=== PATIENT | male | born 1945 | race Caucasian/White ===

== ENCOUNTER → 2018-01-01 14:13 | Outpatient (CLI) | payer MEDICARE, SELFPAY ==
[2018-01-01 15:31] LABS: Add Manual Diff / Slide Review NO; Basophils Percent Auto 0.6 % (0-2); Eosinophils Percent Auto 3.3 % (2-4); Hematocrit 48.2 % (41-53); Hemoglobin 15.9 g/dL (13.5-17.5); Lymphocytes Percent Auto 24.6 % (25-40); Mean Corpuscular Hemoglobin 31.6 PG (26-34); Mean Corpuscular Volume 95.7 fL (80-100); Monocytes Percent Auto 8.2 % (3-14); Neutrophils Absolute Auto 6000 /uL (3000-5900); Neutrophils Percent Auto 63.3 % (50-75); Platelet Count 194 X10^3/uL (150-400); Red Blood Cell Count 5.03 X10^6/uL (4.5-5.9); Red Cell Distribution Width 14.2 % (11.6-14.8); White Blood Cell Count 9.5 X10^3/uL (4.5-11.0)
[2018-01-01 15:33] LABS: Hemoglobin A1C% w Est Avg Glu 6.4 % (4.0-6.0)
[2018-01-01 15:40] LABS: Alanine Aminotransferase 42 IU/L (21-72); Albumin 4.9 g/dL (3.5-5.0); Albumin Globulin Ratio 1.7 (1.0-2.8); Alkaline Phosphatase 75 U/L (38-126); Aspartate Aminotransferase 35 IU/L (17-59); BUN Creatinine Ratio 27.5 (6-22); Bilirubin Total 0.3 mg/dL (0.2-1.3); Blood Urea Nitrogen 22 mg/dL (9-20); Calcium 9.2 mg/dL (8.4-10.2); Carbon Dioxide 25 mmol/L (22-32); Chloride 105 mmol/L (98-107); Cholesterol 132 mg/dL (140-199); Estimated Glomerular Filt Rate > 60.0 mL/min (>60); Globulin 2.9 g/dL (1.7-4.1); Glucose 99 mg/dL (80-110); HDL Cholesterol 41 mg/dL (40-60); HEMOLYSIS 23 (0-50); LDL Cholesterol Calculated 58 mg/dL (<100); Potassium 4.2 mmol/L (3.4-5.1); Sodium 146 mmol/L (137-145); Total Protein 7.8 g/dL (6.3-8.2); Triglycerides 166 mg/dL (35-150)
== END ==
PROVIDERS: Visit Provider Physician Assistant
DX: R60.9 Edema, unspecified (principal); I10 Essential (primary) hypertension; R73.03 Prediabetes; E78.5 Hyperlipidemia, unspecified
CPT/HCPCS: 36415; 80053; 80061; 83036; 85025

== ENCOUNTER → 2018-02-14 14:00 | Outpatient (CLI) | payer MEDICARE, SELFPAY ==
--- NOTE | 2018-02-14 | DI.ECHO.S_ITS ---
[facility] +---------+ : : [address] : : : : [id number] : : : : Phone: [phone] Echocardiogram Report + + :Name: RASHI FERNÁNDEZ Study Date: 02/14/2018 Height: 72 in : :[facility] Exam Location: [facility] Weight: 266 lb : : Gender: Male BSA: 2.4 m2 : :: 1945 Age: 72 yrs BP: 130/90 mmHg: :Reason For Study: Congestive Heart Failure : :Ordering Physician: Dr. Isaac : :Steffen Performed By: Jenelle Page : :Referring: LELAND HAMMOND : + + Interpretation Summary The left ventricle is normal in size. The ejection fraction is estimated to be 65-70%. The right ventricle is mildly dilated. The right ventricular systolic function is normal. No significant valvular pathology. The ascending aorta is mildly enlarged. Procedure: A two-dimensional transthoracic echocardiogram with color flow and Doppler was performed. The study quality was technically adequate. There is no prior echocardiogram noted for this patient. The patient was in normal sinus rhythm during the exam. Left Ventricle: The left ventricle is normal in size. Proximal septal thickening is noted. There is no thrombus. The ejection fraction is estimated to be 65-70%. There are no focal wall motion abnormalities. Diastolic parameters suggest a relaxation abnormality of the left ventricle, consistent with probable normal filling pressures. Right Ventricle: The right ventricle is mildly dilated. The right ventricular systolic function is normal. Atria: The left atrium is mildly dilated. Right atrial size is normal. A prominent eustachian valve is noted. There is no Doppler evidence for an interatrial shunt. Mitral Valve: There is mild mitral annular calcification. There is trace mitral regurgitation. Aortic Valve: The aortic valve is trileaflet. The aortic valve opens well. There is discrete nodular thickening of the left coronary cusp. There is no aortic valve stenosis. No aortic regurgitation is present. Tricuspid Valve: The tricuspid valve is normal in structure and function. Pulmonary artery pressures cannot be estimated because of the lack of a measurable TR jet velocity. There is trace tricuspid regurgitation. Pulmonic Valve: The pulmonic valve is not well visualized. There is trace pulmonic regurgitation. Great Vessels: The aortic root is normal size. The ascending aorta is mildly enlarged. The pulmonary artery is not well visualized, but is probably normal size. The IVC is of normal diameter and collapses greater than 50% with a sniff. This suggests a low right atrial pressure of 3 mm Hg. Pericardium/ Pleura There is no pericardial effusion. There is no pleural effusion. MMode/2D Measurements & Calculations LVIDd: 4.9 cm Ao root diam: 3.4 cm LVIDs: 2.8 cm asc Aorta Diam: 3.5 cm FS: 43.4 % EPSS: 0.23 cm IVSd: 1.1 cm LVPWd: 0.82 cm LV chisholm. diameter/BSA (cm/m^2): 2.0 LV sys. diameter/BSA (cm/m^2): 1.2 LA A2 area: 30.5 cm2 RA long axis: 6.3 cm LA A4 area: 23.5 cm2 RA area: 21.9 cm2 LA length (vol): 6.5 cm RA vol: 64.6 ml LA vol: 93.8 ml RA : 26.9 ml/m2 LA vol index: 39.0 ml/m2 IVC diam: 2.0 cm Doppler Measurements & Calculations Ao V2 max: 130.2 cm/sec LVOT Max Mayito: 119.1 cm/sec Ao V2 mean: 88.6 cm/sec LV V1 max P.7 mmHg Ao max P.8 mmHg LV V1 VTI: 25.0 cm Ao mean P.4 mmHg sev ratio: 0.86 Ao V2 VTI: 29.0 cm MV E max mayito: 76.5 cm/sec TR max mayito: 200.4 cm/sec MV A max mayito: 96.2 cm/sec TR max P.1 mmHg MV E/A: 0.80 PA V2 max: 119.2 cm/sec Med Peak E' Mayito: 6.8 cm/sec PA V2 mean: 85.1 cm/sec E/E' med: 11.2 PA mean P.1 mmHg Lat Peak E' Mayito: 8.6 cm/sec PA Accel Time: 0.14 sec E/E' lat: 8.9 E/e' average: 10.1 MV dec time: 0.16 sec MV P1/2t: 45.1 msec MV P1/2t max mayito: 77.2 cm/sec MVA(P1/2t): 4.9 cm2 Reading Physician:PM
== END ==
PROVIDERS: Visit Provider Internal Medicine
DX: I50.20 Unspecified systolic (congestive) heart failure (principal); I77.810 Thoracic aortic ectasia
CPT/HCPCS: 93306

== ENCOUNTER 2018-05-03 14:10 | Day surgery (SDC) | payer MEDICARE, SELFPAY ==
--- NOTE | 2018-05-03 | PATH_ITS ---
[facility] Accession Number: [id number] . 01 Material submitted: . PART A: CECAL POLYP PART B: POLYP @90CM . 02 Diagnosis: A. Cecum, Polyp: Tubular adenoma. . B. Colon at 90 cm, Polyp: Tubular adenoma. MRV/05/07/2018 . 02 Electronically signed: . Brandt Guevara MD, PhD, Pathologist NPI- [id number] . 01 Gross description: . Part A: CECAL POLYP: Received in formalin are 2 fragment(s) of krueger, soft tissue measuring 0.2 x 0.2 x 0.2 cm to 0.3 x 0.3 x 0.3 cm which is entirely submitted and submitted entirely in 1 cassette(s) Part B: POLYP @90CM: Received in formalin is 1 fragment(s) of krueger, soft tissue measuring 0.4 x 0.3 x 0.3 cm which is entirely submitted and submitted entirely in 1 cassette(s) /[facility] /[facility] . 02 Pathologist provided ICD-10: D12.0, D12.6 . 02 CPT . 605751, 337491 Performed at: 01 [facility] [address], [place], [place] [id number] MD Jose Alvarez MD Phone: [phone] Performed at: 02 [facility] [address] [place], [place] [id number] MD Angy Mantilla MD Phone: [phone]
[2018-05-03 14:33] VITALS: BMI 35.9
[2018-05-03 14:40] VITALS: BP 133/83; PULSE 93; RESP 15; TEMP 37.2; O2SAT 95
[2018-05-03] MEDS: SODIUM CHLORIDE 0.9% 1,000 ML 200 ML IV (14:41)
--- NOTE | 2018-05-03 14:56 | PM.HP.1 ---
History of Present Illness Chief complaint: [id number] Patient History Medical History (Updated 05/03/18 @ 14:32 by Adeel Martinez) Cognitive change (Acute) Meningitis spinal (Acute) Meds Home Medications Medication Instructions Recorded Confirmed Type aspirin 81 mg PO DAILY 05/03/18 05/03/18 History atorvastatin 20 mg PO DAILY 05/03/18 05/03/18 History multivitamin 1 tab PO QAM 05/03/18 05/03/18 History pantoprazole 20 mg PO DAILY 05/03/18 05/03/18 History Allergies Allergy/AdvReac Type Severity Reaction Status Date / Time No Known Drug Allergies Allergy Verified 05/03/18 14:28 Review of Systems Review of Systems All systems reviewed & are unremarkable except as noted in HPI and below Exam Vital Signs (past 8 hours): - 05/03/18 14:40 Temperature 98.9 F Pulse Rate 93 H Respiratory Rate 15 Blood Pressure 133/83 Pulse Oximetry 95 Oxygen Delivery Method Room Air Narrative Exam Narrative: Cardiac exam is normal no gallop no murmur no rub lungs are clear with no rales or wheezes abdomen soft nontender no organomegaly rectal exam will be done at the time of colonoscopy Assessment & Plan Assessment & Plan narrative: Plan is screening colonoscopy in this asymptomatic patient
[2018-05-03] MEDS: MIDAZOLAM 5 MG/5 ML VIAL IV (14:58)
[2018-05-03] MEDS: fentaNYL 250 MCG/5 ML INJ IV (14:59)
--- NOTE | 2018-05-03 15:38 | PM.OP.1 ---
Operative Date/Time/Diagnoses Date of procedure: 05/03/18 Time of procedure: 15:39 Pre-op diagnosis: Screening colonoscopy history of positive colo guard test Post-op diagnosis: other Procedure & Clinicians Same procedure as scheduled: Yes Indications: Patient had a positive: Garde test underwent colonoscopy to the cecum I removed 2 very small polyps 1 in the cecum 1 at 90 cm these were 2-3 mm in diameter very likely hyperplastic Click Yes if Unassisted: Yes Anesthesia Type: Sedation Operative Notes Findings: Patient had 2 very small polyps 1 in the cecum 1 at 90 cm these were removed with cold forceps and sent for histopathology likely they are benign hyperplastic polyps Specimen(s): other Blood products transfused: none Procedure in detail: Patient was properly identified during surgical pause he was given conscious sedation using Versed and fentanyl total sedation time 24 minutes. Patient's colonoscopy was well-tolerated passing the colonoscope from the anus to the cecum patient does have left colonic diverticulosis he also had 2 very small polyps in the 2-3 mm range. One in the cecum the other at 90 cm these were removed with the cold forceps procedures very well tolerated . Complications: none Condition: stable Disposition: PACU
[2018-05-03 15:39] VITALS: BP 120/81; PULSE 81; RESP 22; TEMP 36.3; O2SAT 94
[2018-05-03 15:44] VITALS: BP 116/75; PULSE 80; RESP 16; O2SAT 94
[2018-05-03 15:49] VITALS: BP 120/82; PULSE 77; RESP 22; O2SAT 94
[2018-05-03 15:54] VITALS: PULSE 80; RESP 20; TEMP 36.6; O2SAT 94
[2018-05-03 16:15] VITALS: BP 130/87; PULSE 86; RESP 20; TEMP 36.7; O2SAT 98
== END 2018-05-03 16:15 | disposition home or self-care (01) ==
PROVIDERS: Visit Provider Surgery
PROC: 0DJD8ZZ Inspection of Lower Intestinal Tract, Via Natural or Artificial Opening Endoscopic (ICD-10-PCS; CPT 45378; principal; 2018-05-03 16:00)
DX: R19.5 Other fecal abnormalities (principal); D12.0 Benign neoplasm of cecum; D12.6 Benign neoplasm of colon, unspecified
CPT/HCPCS: 45380; 88305; J2250; J3010

== ENCOUNTER 2022-12-02 12:24 | Emergency (ER) | payer MEDICARE, SELFPAY ==
[2022-12-02] VITALS (9 sets, daily range): BP systolic 153–171; BP diastolic 74–87; PULSE 64–87; RESP 16–18; TEMP 36.4–36.6; O2SAT 91–99; BMI 32.5
[2022-12-02 13:11] LABS: Bacteria Urine None Seen; Culture Indicated Urine Cult Not Indicated; RBC Urine None Seen (0-5/HPF); Squamous Epithelial Cell Urine None Seen (0-5/HPF); Urine Comments N; WBC Urine None Seen (0-5/HPF)
--- NOTE | 2022-12-02 14:42 | PC.NURSE ---
pt denies any symptoms of UTI. No info filled out on above section
--- NOTE | 2022-12-02 15:35 | ED_ITS ---
HPI - General Adult General Chief complaint: Urogenital-Male Stated complaint: ref due to behavioral change/ pos UTI Time Seen by Provider: 12/02/22 15:31 Source: patient Mode of arrival: Ambulatory Limitations: no limitations History of Present Illness HPI narrative: 77-year-old male history of dyslipidemia, GERD on aspirin 81 mg daily with some memory issues. Patient lives in assisted living was noted to have 2 episodes where he was angry. Patient states there was claims shelves in his clamp chowder. Patient's with his son who states this is atypical he is usually very mild and calm and kind with the staff. They came to evaluate see if glucose her urine was altered. Patient has not had fevers or chills, no other changes he is otherwise been himself and son states he is himself today. Denies any pain no chest pain, no shortness of breath no nausea or vomiting no new GI or urinary symptoms. No swelling of extremities. Normal gait and movement. Patient has not had any medication changes. No other recent changes. No known drug allergies. After discussion with patient and family they feel comfortable returning home without lab draw. Related Data Home Medications Medication Instructions Recorded Confirmed aspirin 81 mg tablet,delayed 81 mg PO DAILY 05/03/18 05/03/18 release atorvastatin 20 mg tablet 20 mg PO DAILY 05/03/18 05/03/18 multivitamin 1 tab PO QAM 05/03/18 05/03/18 pantoprazole 20 mg tablet,delayed 20 mg PO DAILY 05/03/18 05/03/18 release Allergies Allergy/AdvReac Type Severity Reaction Status Date / Time No Known Drug Allergies Allergy Verified 05/03/18 14:28 Review of Systems Review of Systems ROS Unobtainable: All systems reviewed & are unremarkable except as noted in HPI and below Patient History Medical History Cognitive change Meningitis spinal Social History Smoking Status: Never smoker Smoking Status: Never smoker alcohol intake frequency: a few times a month Substance Use Type: does not use Exam Narrative Exam Narrative: GEN: well nourished, well appearing male, alert and oriented, patient appears to be in mild distress. Patient is calm, cooperative. HEENT: Atraumatic, pupils are equal round reactive to light, extraocular movements are intact, nares are clear, TMs are clear with no fluid, there is no conjunctival pallor. Throat is clear without any exudates, erythema, tonsillar enlargement or uvular deviation HEART: Regular rate and rhythm without murmur, clicks, rubs. LUNGS:Lungs clear to auscultation, no wheezes, rales, crackles, chest moves symmetrically, no tachypnea or accessory muscle use ABD:bowel sounds normal, soft, non-tender, no guarding, rebound, rigidity, no masses noted, no hepatosplenomegaly :No CVA tenderness MSCL: Non-tender, no muscle atrophy, muscles strength 5/5 upper and lower extremities, full range of motion, normal gait NEURO:CN 2-12 intact, sensation normal, normal gait. Initial Vital Signs Initial Vital Signs: Vital Signs Temperature 97.5 F L 12/02/22 12:28 Pulse Rate 68 12/02/22 12:28 Respiratory Rate 18 12/02/22 12:28 Blood Pressure 171/87 H 12/02/22 12:28 Pulse Oximetry 99 12/02/22 12:28 Oxygen Delivery Method Room Air 12/02/22 12:28 Course Orders Ordered: ED Orders 12/02/22 12:35 Urine Culture Stat Urine Microscopic Stat Vital Signs Vital signs: Vital Signs - 8 hr 12/02/22 12:28 12/02/22 13:32 12/02/22 13:33 Temperature 97.5 F L Pulse Rate 68 Respiratory Rate 18 Blood Pressure 171/87 H 167/78 H Pulse Oximetry 99 93 Oxygen Delivery Method Room Air 12/02/22 13:33 12/02/22 14:00 12/02/22 14:00 Temperature Pulse Rate 64 Respiratory Rate Blood Pressure 156/74 H Pulse Oximetry 97 96 Oxygen Delivery Method 12/02/22 14:31 12/02/22 14:32 12/02/22 14:32 Temperature Pulse Rate 87 85 Respiratory Rate Blood Pressure 157/87 H Pulse Oximetry 91 98 Oxygen Delivery Method 12/02/22 15:00 12/02/22 15:30 12/02/22 15:51 Temperature 97.9 F Pulse Rate 70 68 70 Respiratory Rate 16 Blood Pressure 153/77 H Pulse Oximetry Oxygen Delivery Method Medical Decision Making Lab Data Labs: Lab Results 12/02/22 Range/Units 12:35 Urine RBC None seen (0-5/HPF) Urine WBC None seen (0-5/HPF) Ur Squamous Epith Cells None seen (0-5/HPF) Urine Bacteria None seen (None) Ur Culture Indicated? Cult not indicated Micro UA Comment N Point of Care Testing Glucose POC 112 Urine Dip Bedside Urine Glucose Negative Bedside Urine Bilirubin - Negative Bedside Urine Ketone - Negative Urine Specific [place] 1.015 Bedside Urine Occult Blood - Negative Bedside Urine pH 6.0 Bedside Urine Protein - Negative Bedside Urine Urobilinogen - Negative Bedside Urine Nitrite - Negative Bedside Urine Leukocytes +/- 15 Esterase Point of care testing: Point of Care Testing Glucose POC 112 Urine Dip Bedside Urine Glucose Negative Bedside Urine Bilirubin - Negative Bedside Urine Ketone - Negative Urine Specific [place] 1.015 Bedside Urine Occult Blood - Negative Bedside Urine pH 6.0 Bedside Urine Protein - Negative Bedside Urine Urobilinogen - Negative Bedside Urine Nitrite - Negative Bedside Urine Leukocytes +/- 15 Esterase MDM Narrative Medical decision making narrative: This is a 77-year-old male with complaint of possible mental status changes had to angry episodes or outbursts in the past several days which is atypical. No other acute changes medically, no new medication changes. He is otherwise been himself. Boarding care urine shows leuks but micro is negative. Point of care glucoses appropriate. After discussion with family will send urine for culture. At this time he is not having any urinary symptoms and went hold off on starting antibiotic. We did discuss doing lab workup they would prefer to return home at this time there is no other acute changes on examination make me feel we have to do this today but discussed would recommend lab work patient has persistent symptoms and a negative urine culture as he could be having electrolyte abnormalities or other causes. Discharge Plan Departure Patient Disposition: Home Clinical Impression: Behavioral change Activity Restrictions/Additional Instructions: Please follow-up with your physician. I hope you continue to have a good week. Your urine sample did not show clear infection but has been sent culture. States about 48 hours to result and if positive you will be contacted to start antibiotics. Please return for new or worsening symptoms, fevers, changes in mental status, chest pain, shortness of breath, vomiting, black or bloody stools, incontinence, difficulty with movement or gait or other new or concerning changes. Prescriptions: No Action multivitamin Tablet 1 tab PO QAM atorvastatin 20 mg Tablet 20 mg PO DAILY aspirin 81 mg Tablet,Delayed Release (Dr/Ec) 81 mg PO DAILY pantoprazole 20 mg Tablet,Delayed Release (Dr/Ec) 20 mg PO DAILY Referrals: Poncho Bourne MD [Primary Care Provider] - Stand Alone Forms: Patient Portal/API
== END 2022-12-02 16:00 | disposition home or self-care (01) ==
PROVIDERS: Emergency Provider Emergency Medicine; PCP Internal Medicine
DX: R46.89 Other symptoms and signs involving appearance and behavior (principal)
CPT/HCPCS: 81003; 81015; 82962; 87086; 99282

== ENCOUNTER → 2023-01-22 | Outpatient (CLI) | payer MEDICARE, SELFPAY ==
--- NOTE | 2023-01-22 | DI.CT.S_ITS ---
PROCEDURE: CT LUNG LOW DOSE SCREENING INDICATIONS: lung cancer screening TECHNIQUE: Noncontrast 2.0-2.5 mm thick sections acquired from the pulmonary apices to the posterior costophrenic angles. 7 mm thick axial MIP, and 5 mm coronal and sagittal reformats were then acquired. For radiation dose reduction, the following was used: automated exposure control, adjustment of mA and/or kV according to patient size. COMPARISON: None. FINDINGS: Image quality: Diagnostic, given the low radiation dose technique. Lungs and pleura: There is a 1.8 cm in the superior segment of the right lower lobe, demonstrating partial calcification, likely benign such as an old granuloma. There are multiple small lung nodules bilaterally. Reference nodules are listed in following: Nodule 1: 5 mm; right middle lobe; series 3 image 135. Nodule 2: 3 mm; right upper lobe; series 3, image 61. Nodule 3: 6 mm; left lower lobe; series 3, image 216. Nodule 4-6: 3 x 2 mm; left upper lobe; series 3 image is 49. Mediastinum: Heart size is normal. No pericardial effusion. There is mild coronary artery calcification. No mediastinal adenopathy by size criteria. Thoracic aorta and central pulmonary arteries are normal in size. Esophagus is normal in caliber. No hiatal hernia. Bones and chest wall: No suspicious bony lesions. No vertebral body compression fractures. No axillary or supraclavicular adenopathy by size criteria. No thyroid nodules which require sonographic follow up, per consensus guidelines. Upper Abdomen: Visualized upper abdomen solid organs and bowel loops appear normal in the absence of contrast. IMPRESSION: Multiple small pulmonary nodules are present. Nodule #3 is suspicious. LUNG-RADS 4; recommend a short-term follow-up CT in 3 months. Clinically Significant Non-pulmonary Findings: None. Dictated by: Naa Carrillo M.D. on 01/22/2023 at 14:35 Approved by: Naa Carrillo M.D. on 01/22/2023 at 14:44
== END ==
PROVIDERS: PCP Internal Medicine; Referring Provider Student in an Organized Health Care Education/Training Program; Visit Provider Student in an Organized Health Care Education/Training Program
DX: R91.8 Other nonspecific abnormal finding of lung field (principal); Z12.2 Encounter for screening for malignant neoplasm of respiratory organs; Z87.891 Personal history of nicotine dependence; I25.10 Atherosclerotic heart disease of native coronary artery without angina pectoris
CPT/HCPCS: 71271

== ENCOUNTER → 2023-04-27 14:11 | Outpatient (CLI) | payer MEDICARE, SELFPAY ==
--- NOTE | 2023-04-27 14:14 | DI.CT.S_ITS ---
PROCEDURE: CT CHEST WO CON INDICATIONS: Other nonspecific abnormal finding of lung field TECHNIQUE: Noncontrast 5 mm thick sections acquired from the pulmonary apices to the posterior costophrenic angles. 1 mm lung window, 5 mm thick coronal and sagittal and 7 mm axial MIP reformats were then acquired. For radiation dose reduction, the following was used: automated exposure control, adjustment of mA and/or kV according to patient size. COMPARISON: [facility], CT, CT LUNG LOW DOSE SCREENING, 01/22/2023, 12:04. FINDINGS: Image quality: Diagnostic. Lower Neck: No enlarged lymph nodes. Thyroid: There is a 1.9 x 2.8 cm nodule in the left thyroid lobe. A 0.5 cm nodule is seen in the right thyroid lobe. Axillae: No enlarged lymph nodes. Chest Wall: Unremarkable. Bones: Unremarkable. Lungs and Pleura: Again noted are multiple lung nodules. More specifically, previously noted suspicious 0.6 cm left lower lobe nodule appears unchanged (series 3, image 216). Other nodules are are also stable. There is a 1.8 cm partially calcified nodule in the right lower lobe. No pneumothorax or pleural effusions. No consolidation. Heart: Heart size is normal. No pericardial effusion. Thoracic Vessels: The aorta and pulmonary arteries demonstrate normal size. Mediastinum and Nathalia: No enlarged lymph nodes. Esophagus: No wall thickening. There is a small hiatal hernia. Upper Abdomen: Visualized upper abdomen solid organs and bowel loops appear normal. IMPRESSION: 1. Stable lung nodules. Recommend continue CT follow-up. The next follow-up CT can be obtained in 6 months. 2. Bilateral thyroid nodules, most likely benign. Recommend thyroid ultrasound for follow-up. 3. Coronary artery atherosclerosis. Fleischner Society criteria for SOLID lung nodule followup. Nodule size (mm)Low-risk patientHigh-risk patient?4No follow-up neededFollow-up at 12 mo; if no change, no further follow-up>[id number] CT at 12 mo; if no change, no further follow-up needed.Initial follow-up CT at 6-12 mo, then 18-24 mo if no change. >6-8Initial follow-up CT at 6-12 mo, then 18-24 mo if no change. Initial follow-up CT at 3-6 mo, then 9-12 mo and 24 mo if no change. >8Follow-up CT at 3, 9, 24 mo. Or PET and/or biopsy.Same as for low-risk pts. Dictated by: Naa Carrillo M.D. on 04/27/2023 at 16:23 Approved by: Naa Carrillo M.D. on 04/27/2023 at 16:31
== END ==
PROVIDERS: PCP Internal Medicine; Referring Provider Student in an Organized Health Care Education/Training Program; Visit Provider Student in an Organized Health Care Education/Training Program
DX: R91.8 Other nonspecific abnormal finding of lung field (principal); E04.2 Nontoxic multinodular goiter; I25.10 Atherosclerotic heart disease of native coronary artery without angina pectoris
CPT/HCPCS: 71250

== ENCOUNTER → 2023-05-14 10:41 | Outpatient (CLI) | payer MEDICARE, SELFPAY ==
--- NOTE | 2023-05-14 10:45 | DI.US.S_ITS ---
PROCEDURE: US THYROID INDICATIONS: Nontoxic multinodular goiter TECHNIQUE: Real-time scanning was performed of the thyroid gland, with image documentation. COMPARISON: None. FINDINGS: Thyroid: Right lobe measures 0.6 x 1.9 x 1.6 cm. Left lobe measures 5.0 x 2.7 x 2.3 cm. Isthmus is 0.3 cm thick. Echotexture is homogeneous. Nodule number: 1 Location: Left superior Size: 3.6 x 2.4 x 2.1 cm. Composition: Solid Echogenicity: Isoechoic Shape: wider than tall. Margins: Smooth Echogenic foci: None Total points: 3 ACR TI-RADS category: 3 Nodule number: 2 Location: Right inferior Size: 1.6 x 1.2 x 1.1 cm. Composition: Solid Echogenicity: Isoechoic Shape: wider than tall. Margins: Small Echogenic foci: Non Total points: 3 ACR TI-RADS category: 3 IMPRESSION: Bilateral category 3 nodules. Best practice guidelines suggest FNA nodule 1 and follow-up schedule nodule 2. ACR TI-RADS definitions and recommendations: TI-RADS 1 (benign): 0 points. FNA not needed. TI-RADS 2 (not suspicious): 2 points. FNA not needed. TI-RADS 3 (mildly suspicious): 3 points. * FNA if 2.5 cm or larger, follow up if 1.5 cm or larger (at 1, 3, and 5 years). TI-RADS 4 (moderately suspicious): 4-6 points. * FNA if 1.5 cm or larger, follow up if 1 cm or larger (at 1, 2, 3, and 5 years). TI-RADS 5 (highly suspicious): 7 points or more. * FNA if 1 cm or larger, follow up if 0.5 cm or larger (every year for 5 years). 1. Approved by: Lino Barahona M.D. on 05/14/2023 at 14:58
== END ==
PROVIDERS: PCP Internal Medicine; Referring Provider Student in an Organized Health Care Education/Training Program; Visit Provider Student in an Organized Health Care Education/Training Program
DX: E04.2 Nontoxic multinodular goiter (principal)
CPT/HCPCS: 76536

== ENCOUNTER → 2023-10-29 13:54 | Outpatient (CLI) | payer MEDICARE, SELFPAY ==
--- NOTE | 2023-10-29 13:55 | DI.CT.S_ITS ---
PROCEDURE: CT CHEST WO CON INDICATIONS: LUNG NODULES TECHNIQUE: Noncontrast 5 mm thick sections acquired from the pulmonary apices to the posterior costophrenic angles. 1 mm lung window, 5 mm thick coronal and sagittal and 7 mm axial MIP reformats were then acquired. For radiation dose reduction, the following was used: automated exposure control, adjustment of mA and/or kV according to patient size. COMPARISON: [facility], CT, CT CHEST WO CON, 04/27/2023, 14:49. [facility], CT, CT LUNG LOW DOSE SCREENING, 01/22/2023, 12:04. FINDINGS: Image quality: Diagnostic. Lower Neck: No enlarged lymph nodes. Thyroid: Thyroid nodules again noted. Please see recommendations on prior thyroid ultrasound. Axillae: No enlarged lymph nodes. Chest Wall: Unremarkable. Bones: Unremarkable. Lungs and Pleura: No pneumothorax or pleural effusions. Right lower lobe benign appearing 1.8 cm nodule appears unchanged, possibly a granuloma or hamartoma. No suspicious new or enlarging pulmonary nodule. -Stable 6 mm solid nodule at the left lung base (3/229). -Stable 5 mm nodule in the right middle lobe (3/155). -Additional pulmonary micro nodules appear unchanged. Heart: Heart size is normal. No pericardial effusion. Moderate coronary artery calcifications. Thoracic Vessels: The aorta and pulmonary arteries demonstrate normal size. Mediastinum and Nathalia: No enlarged lymph nodes. Esophagus: No wall thickening. Small hiatal hernia. Upper Abdomen: Visualized upper abdomen solid organs and bowel loops appear normal. IMPRESSION: Stable pulmonary nodules. Consider annual low-dose screening CT if patient meets eligibility criteria. Approved by: Miguel Ángel Joaquin M.D. on 10/30/2023 at 13:11
== END ==
PROVIDERS: PCP Student in an Organized Health Care Education/Training Program; Referring Provider Student in an Organized Health Care Education/Training Program; Visit Provider Student in an Organized Health Care Education/Training Program
DX: R91.8 Other nonspecific abnormal finding of lung field (principal); I25.10 Atherosclerotic heart disease of native coronary artery without angina pectoris; K44.9 Diaphragmatic hernia without obstruction or gangrene
CPT/HCPCS: 71250

== ENCOUNTER → 2024-09-15 13:38 | Outpatient (CLI) | payer MEDICARE, SELFPAY ==
--- NOTE | 2024-09-15 13:40 | DI.CT.S_ITS ---
PROCEDURE: CT LUNG LOW DOSE SCREENING INDICATIONS: PERSONAL HX OF NICOTINE DEP TECHNIQUE: Noncontrast 2.0-2.5 mm thick sections acquired from the pulmonary apices to the posterior costophrenic angles. 7 mm thick axial MIP, and 5 mm coronal and sagittal reformats were then acquired. For radiation dose reduction, the following was used: automated exposure control, adjustment of mA and/or kV according to patient size. COMPARISON: [facility], CT, CT CHEST WO CON, 10/29/2023, 14:08. [facility], CT, CT LUNG LOW DOSE SCREENING, 01/22/2023, 12:04. FINDINGS: Image quality: Diagnostic. Lower Neck: No enlarged lymph nodes. Thyroid: Within the left thyroid, there is a 2.2 cm nodule. Axillae: No enlarged lymph nodes. Chest Wall: Unremarkable. Bones: Age-appropriate bony degenerative changes are seen. Accentuated thoracic kyphosis is seen. Lungs and Pleura: Within the right lower lobe, there is again seen a 19 mm nodule, on series 6, image 68. Additional pulmonary nodules are seen: Right middle lobe laterally, series 3, image 136, 6 mm, stable No focal infiltrates are seen. No pneumothorax or pleural effusions are seen. Heart: Heart size is normal. No pericardial effusion. Thoracic Vessels: The aorta and pulmonary arteries demonstrate normal size. Mediastinum and Nathalia: No enlarged lymph nodes. Esophagus: No wall thickening. No hiatal hernia. Upper Abdomen: Visualized upper abdomen solid organs and bowel loops appear normal. IMPRESSION: Stable 19 mm right lower lobe pulmonary nodule. Stable small nodules are seen elsewhere. LUNG-RADS 2; continued annual screening, if eligible. Clinically Significant Non-pulmonary Findings: Left thyroid nodule, please consider a follow-up thyroid ultrasound. Dictated by: Camden Vidal M.D. on 09/15/2024 at 17:11 Approved by: Camden Vidal M.D. on 09/15/2024 at 17:16
== END ==
PROVIDERS: PCP Student in an Organized Health Care Education/Training Program; Referring Provider Student in an Organized Health Care Education/Training Program; Visit Provider Student in an Organized Health Care Education/Training Program
DX: R91.1 Solitary pulmonary nodule (principal); E04.1 Nontoxic single thyroid nodule; M40.294 Other kyphosis, thoracic region; Z87.891 Personal history of nicotine dependence
CPT/HCPCS: 71271